=== PATIENT | female | born 1955 | race Caucasian/White ===

== ENCOUNTER 2021-04-28 13:34 | Outpatient (REF) | payer OTHER, SELFPAY ==
[2021-04-28 14:54] LABS: MANUAL DIFF FLAG NO
[2021-04-28 15:37] LABS: Basophils Percent Auto 0.6 % (0-2); Eosinophils Absolute Auto 0.2 X10*3/uL (0.0-0.4); Eosinophils Percent Auto 3.7 % (0-4); Hematocrit 42.6 % (37-47); Hemoglobin 14.1 g/dl (12.0-16.0); Imm Gran Abs Auto 0.02 X10*3/uL (0.00-0.03); Imm Gran Pct Auto 0.3 % (0.0-0.4); Lymphocytes Absolute Auto 2.2 X10*3/uL (1.2-4.9); Lymphocytes Percent Auto 34.1 % (20-40); Mean Corpuscular HGB Conc 33.1 g/dl (31.0-35.0); Mean Corpuscular Hemoglobin 31.3 pg (27.0-33.0); Mean Corpuscular Volume 94.5 fL (80-98); Mean Platelet Volume 9.5 fL (9.4-12.3); Monocytes Absolute Auto 0.6 X10*3/uL (0.1-1.2); Monocytes Percent Auto 8.4 % (2-11); Neutrophils Absolute Auto 3.4 X10*3/uL (2.0-8.3); Neutrophils Percent Auto 52.9 % (45-73); Platelet Count 327 X10*3/uL (160-400); Red Blood Count 4.51 X10*6/uL (4.20-5.50); Red Cell Distribution Width 12.6 % (11.0-16.0); White Blood Count 6.5 X10*3/uL (4.8-10.8)
[2021-04-28 16:21] LABS: Erythrocyte Sedimentation Rate 12 MM/HR (0-20)
[2021-04-29 20:51] LABS: Immunoglobulin E 13 kU/L (<OR=114)
[2021-04-30 08:27] LABS: Myeloperoxidase Antibody <1.0 AI; Proteinase 3 PR3 Antibodies <1.0 AI
[2021-05-01 01:56] LABS: Cyclic Citrullinated Peptide <16 UNITS
[2021-05-03 13:17] LABS: Asperg fumigatus Precip Abs NEGATIVE (NEGATIVE); Micropoly faeni Abs NEGATIVE (NEGATIVE); Pigeon serum Abs NEGATIVE (NEGATIVE); Saccharo pora viridis Abs NEGATIVE (NEGATIVE); Thermo candidus Abs NEGATIVE (NEGATIVE); Thermoa vulgaris #1 NEGATIVE (NEGATIVE)
[2021-05-06 14:06] LABS: Anti Nuclear Antibody Screen NEGATIVE (NEGATIVE)
== END 2021-04-28 13:35 | disposition home or self-care (01) ==
LOC: HO.LAB 13:34
PROVIDERS: PCP Internal Medicine; Visit Provider Hospitalist
DX: R91.8 Other nonspecific abnormal finding of lung field (principal); J67.9 Hypersensitivity pneumonitis due to unspecified organic dust
CPT/HCPCS: 36415; 82785; 85025; 85652; 86021; 86038; 86039; 86200; 86331; 86606; 86609

== ENCOUNTER 2021-10-09 15:45 | Outpatient (REF) | payer OTHER, SELFPAY ==
--- NOTE | 2021-10-09 17:09 | PFT_ITS ---
INDICATION: Dyspnea. SPIROMETRY: FEV1 to FVC of 89% with an FEV1 of 2.53 L, which is 96% predicted and an FVC of 2.85 L, which is 82% predicted. No significant response to bronchodilators noted. Maximum voluntary ventilation 108% predicted. LUNG VOLUMES: Total lung capacity 94% predicted. DIFFUSION CAPACITY: DLCO 71% predicted. COMPARISONS: PFTs from 2020. INTERPRETATION: No obstructive nor restrictive ventilatory defects identified. No significant response to bronchodilators noted. Normal maximum voluntary ventilation. Normal lung volumes except for an isolated mild diffusion impairment. When compared to 2020, there was a trend decrease in the FVC, a trend decrease in the FEV1. No significant change in the total lung capacity, and trend decrease in the diffusion capacity. Clinical correlation warranted. MD TAE Werner/MODKathleen / [id number]
== END 2021-10-09 15:46 | disposition home or self-care (01) ==
LOC: HO.RESP 15:45
PROVIDERS: PCP Internal Medicine; Visit Provider Hospitalist
DX: R91.8 Other nonspecific abnormal finding of lung field (principal); R06.00 Dyspnea, unspecified
CPT/HCPCS: 94060; 94727; 94729

== ENCOUNTER → 2021-11-03 11:23 | Outpatient (BNVA) | payer OTHER, SELFPAY | PROVIDERS: PCP Internal Medicine; Visit Provider Hospitalist | DX: R91.8 Other nonspecific abnormal finding of lung field (principal) ==

== ENCOUNTER 2022-05-06 16:19 | Outpatient (REF) | payer OTHER, SELFPAY ==
--- NOTE | ~2022-05-06 | CT_ITS ---
EXAMINATION: CT CHEST WITHOUT CONTRAST CLINICAL INFORMATION: Follow-up pulmonary nodules COMPARISON: Previous chest CT most recent April 2021 TECHNIQUE: Multidetector volumetric CT imaging of the chest was done. Axial MIP volume rendering provided. Sagittal and coronal reformatted images were obtained. This CT examination was performed using dose optimization techniques as appropriate, variously including the following: *Automated exposure control *Adjustment of mA and/or kV according to patient size (this includes techniques or standardized protocols for targeted exams where dose is matched to indication/reason for exam; i.e. extremities or head) *Use of iterative reconstruction technique DLP: 289 mGy-cm FINDINGS: LUNGS: There is interval decrease in size and number of pulmonary nodules. There is a solid 5 mm right middle lobe nodule axial image 268 series 5. This is slightly decreased in size from 6 mm April 2021 exam. Previously identified subsolid pulmonary nodules greatest in the right upper and right middle lobes appear decreased in size and density or are no longer seen. No new pulmonary nodule. MEDIASTINUM: Enlarged thyroid gland with multiple nodules including calcified partially nodules. Largest nodule is in the left lobe and measures 2 x 5 cm in transverse and longitudinal dimension. Ultrasound follow-up recommended. Small stable mediastinal lymph nodes. No enlarged mediastinal lymph nodes. Evaluation for hilar adenopathy is limited without contrast. There is question of left hilar adenopathy similar to previous exam. Normal heart size. No pericardial effusion. Normal caliber thoracic aorta. CORONARY ARTERY CALCIFICATION: Mild to moderate PLEURA: There is no pleural effusion. No pleural mass or thickening. AXILLA: No lymphadenopathy. UPPER ABDOMEN: Unremarkable. OSSEOUS STRUCTURES: Degenerative changes of the thoracic spine. Postsurgical changes to the cervical spine. CT/CT chest wo IV con IMPRESSION: Slight interval decrease in size in the solid right middle lobe nodule. Interval decrease in size and number of subsolid pulmonary nodules. Stable mediastinal and question left hilar lymphadenopathy. Coronary artery calcification. Enlarged thyroid gland with multiple nodules. Follow-up thyroid ultrasound recommended. Fleischner guidelines were followed.
== END 2022-05-06 16:20 | disposition home or self-care (01) ==
LOC: HO.CT 16:19
PROVIDERS: PCP Internal Medicine; Visit Provider Hospitalist
DX: R91.8 Other nonspecific abnormal finding of lung field (principal); J67.9 Hypersensitivity pneumonitis due to unspecified organic dust
CPT/HCPCS: 71250

== ENCOUNTER → 2022-06-23 15:41 | Outpatient (BNVA) | payer OTHER, SELFPAY | PROVIDERS: PCP Internal Medicine; Visit Provider Hospitalist | DX: R91.8 Other nonspecific abnormal finding of lung field (principal) ==

== ENCOUNTER 2023-07-02 14:49 | Outpatient (AMB) | payer OTHER, SELFPAY ==
[2023-07-02 14:52] VITALS: PULSE 65; O2SAT 98; BMI 37.9
--- NOTE | 2023-07-02 14:52 | MHC.OFFVIS ---
Intake Vital Signs 07/02/23 14:52 Height 5 ft 6 in Weight 235 lb BMI 37.9 Pulse 65 Pulse Source Pulse Oximeter Pulse Oximetry (%) 98 Oxygen Delivery Method Room Air Intake Visit Reasons: CT Chest Follow Up First Aid Trainer Required: No Allergies penicillin G Allergy (Severe, Verified 07/02/23 14:53) swelling Penicillins [PENICILLINS] Allergy (Severe, Unverified 07/02/23 14:53) SEVERE REACTION DR TOLD TO NEVER TAKE. BULLIES TO LUNGS. hydrocodone [From VICODIN] Allergy (Intermediate, Unverified 07/02/23 14:53) NAUSEA Sulfa (Sulfonamide Antibiotics) [SULFA (SULFONAMIDE ANTIBIOTICS)] Allergy (Intermediate, Unverified 07/02/23 14:53) NAUSEA meloxicam Adverse Reaction (Severe, Verified 07/02/23 14:53) Palpitations diclofenac Adverse Reaction (Intermediate, Verified 07/02/23 14:53) Palpitations sulfa Allergy (Severe, Uncoded 07/02/23 14:53) nausea vicodin Allergy (Severe, Uncoded 07/02/23 14:53) Nausea HPI HPI Comments History of Present Illness Details The patient is a 67-year-old woman with a known history of asthma in addition to pulmonary nodules. Her asthma has been stable on the Flovent. She was supposed to have pulmonary function studies and we have to reschedule those. In the meantime for the last few days she developed some sinus congestion and sinus headaches. Also felt warm. We did check her temperature to be 98.7. Her symptoms usually worsened when she bends down her head. Moderate severity. She hasn't taking any medications for it. In regards to her pulmonary nodules the last CT scan of the chest that she had was about a year ago. She did bring a copy of her CT scans that we personally reviewed here in the office. It appears patient has multiple pulmonary nodules primarily ground-glass the nodular densities which very in size. The largest nodule is an 8 mm nodule the right lung. It is slightly irregular in shape. Appears to be stable when compared to her last CT scan back in 2019. At this point the patient needs a repeat CT scan of the chest. ?03/12/2020 the patient is here for pulmonary follow-up visit. She is doing well from a respiratory status. He denies any shortness of breath or cough. She continues use the Flovent in the morning and risks her mild afterwards. She did have a repeat CT scan of the chest done at [facility] which was then compared to the CT scan from [place]. She did have new findings of additional small ground-glass densities primarily in the upper lung zones right more than left. Hard to know if this is completed new or if it is the fact that she had the imaging done elsewhere. We talked about the differential diagnosis including atypical edematous hyperplasia, hypersensitivity reactions and other inflammatory conditions. Her largest nodule in the right lower lobe measuring 7 mm in size has not changed. Will plan to do additional blood work at this time. The findings are not significant enough to warrant invasive or semi-invasive diagnostic intervention at this time. Will plan to really look at the nodules in 6 months and see if there are any significant changes at that time. 04/28/2021 the patient is here for a pulmonary follow-up visit. Overall she continues to do well from a respiratory status. She does complaint of dyspnea on exertion if she is going up a flight of stairs. But otherwise no real limitations. The patient has been using the Flovent daily. We did review her recent CT scan of the chest that was done back in WednesdayApril 24. Unfortunately has not been officially read yet. However I personally reviewed her CT scan of the chest that she had several days ago and compared to her CT scan that she had a little more than year ago. There appears to be interval worsening of the ground-glass the nodular densities primarily in the right upper lung area. Also involving her right middle lobe area. Appears to be in a bronchovascular distribution. Most of the nodules are indeed hazy ground-glass. there is also a 6-7 mm solid nodular density has not changed. 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 11/03/2021 the patient is here for a pulmonary follow-up visit. Overall the patient has been doing well. Denies any significant shortness of breath. She has been working on weight loss. She is trying to exercise more regularly. She continues on the Flovent inhaler which she is tolerating well without any adverse effects. She did have a CT scan of the abdomen done relatively recent that we personally reviewed. No significant parenchymal lung issues or nodules noted. Her last CT scan of the chest was sometime in April 2021. she had multiple pulmonary nodules some that were solids and some subsolid. Her workup for connective tissue conditions in hypersensitivity reactions were also all negative. Therefore the etiology of the pulmonary nodules still unclear. However, while the nodules do not increase then diagnostic testing 1 have a warranted. The patient understands the best way to biopsy 1 of these nodules to be with wedge biopsy Center small CT-guided biopsy may be difficult to Perform with a high yield. Therefore hold off any invasive or semi-invasive diagnostic interventions at this time. Will follow-up in 6-[address] scan. The patient will continue with the Flovent until then. 06/23/2022 the patient is here for a pulmonary follow-up visit. The patient has been doing better at this time. She recently returned from a cruise to [place] and unfortunately she got sick with COVID-19. Her significant other also was sick with COVID-19. She was able to take packs Flovent but several days after the fact. Therefore she felt very sick for several days and now she is back to her baseline. She is going on a cruise in the coming weeks. She will take COVID-19 test. She continues on the Flovent. She did undergo a repeat CT scan that was personally by me. In addition to that we did review and compare to her previous CT scan a year ago. It appears that some of the nodular densities have subsided and some of the ground-glass nodular densities also of subsided some. Although this still present in some areas. Overall reassuring. The suspicion is that this is likely hyper sensitivity process. Although, the only way knowing for sure is to undergo a biopsy. The patient clinically is doing well and the nodular densities are decreasing in size so I do not see the need to pursue any invasive intervention at this time. 07/02/2023 the patient is here for sick visit. Apparently the patient developed COVID again beginning of the month. Just came back from a cruise. The patient started feeling better but then she started getting worse again the last week or so. She went to an urgent care. He was given supportive care. Ultimately then symptoms continued to worsened and therefore she went back to her primary care and she was given a course of doxycycline. I was time the patient did have a CT scan of the chest that was scheduled to follow-up with the pulmonary nodules and indeed she did have a small pneumonia in the right middle lobe area. She also has a pulmonary nodules. Also has some areas of ground-glass opacities. A lot of the findings have to do with her recent likely viral illness and also now the development of postviral bacterial pneumonia. The patient has been responding well to doxycycline. Although will go ahead and complete a 14 day course to treat for the possibility of staph aureus. her pulmonary nodules are stable which is reassuring. Will plan to repeat a chest x-ray when she returns in 6 months. If the x-rays no better or of any abnormal findings or symptoms will repeat the CT scan at an earlier time. [facility] Medical History (Updated 07/05/23 @ 21:00 by Calixto Billingsley MD) Pneumonia Hypersensitivity pneumonitis Pulmonary nodules Social History (Updated 04/28/21 @ 13:53 by Jessica Cotto Marky) Patient Tobacco Use Status: Never used Tobacco Review of Systems Const Denies night sweats ENT Denies change in voice, Denies lip swelling, Denies mouth pain, Reports nasal congestion, Reports nasal discharge and Denies tongue swelling Card Denies chest pain and Reports dyspnea on exertion Resp Reports change in phlegm color, Reports chest congestion, Reports cough, Reports dyspnea on exertion and Reports wheezing GI Denies abdominal pain Musc Denies no additional complaints Neuro Denies Neuro-related abnormal movements Psych Denies no additional complaints Krzysztof/Lymph Denies easy bleeding and Denies lymphadenopathy Aller/Immun Denies lip swelling, Denies tongue swelling and Reports wheezing Physical Exam Vital Signs: Last Vital Signs Pulse 65 07/02/23 14:52 Pulse Ox 98 07/02/23 14:52 Oxygen Delivery Method Room Air 07/02/23 14:52 BMI result Body Mass Index 37.9 Const General: alert Neck Neck: Yes normal visual inspection, Yes full ROM and Yes no lymphadenopathy Chest Chest palpation & inspection: normal inspection of the chest Resp Effort & Inspection: normal respiratory effort Auscultation: no rales, no rhonchi, no wheezes and diminished lung sounds Cardio Rate: regular rate Rhythm: regular rhythm Heart sounds: S1 normal heart sound present and S2 normal heart sound present GI Palpation (GI): Soft to palpation and nontender Auscultation: normal bowel sounds Skin General skin exam: rashes and/or lesions noted Assessment & Plan Assessment & Plan (1) Pulmonary nodules: Code(s): R91.8 - Other nonspecific abnormal finding of lung field (2) Hypersensitivity pneumonitis: Code(s): J67.9 - Hypersensitivity pneumonitis due to unspecified organic dust (3) Pneumonia: Code(s): J18.9 - Pneumonia, unspecified organism Qualifiers: Pneumonia type: due to unspecified organism Laterality: right Lung location: middle lobe of lung Qualified Code(s): J18.9 - Pneumonia, unspecified organism (4) Asthma: Code(s): J45.909 - Unspecified asthma, uncomplicated Qualifiers: Asthma severity: mild Asthma persistence: intermittent Asthma complication type: with acute exacerbation Qualified Code(s): J45.21 - Mild intermittent asthma with (acute) exacerbation Plan Recommendations: Continue Flovent to twice a day start ANNELISE as needed Doxycycline to complete 14 days sputum cx if no better antihistamines as needed CXR in [address] chest in 1 yr- pt prefers [facility] 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 also 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 outside in the garden F/U in 4-6 months or sooner if no better Orders: Orders Sputum Cult + Gram stain 07/02/23 J18.9 - Pneumonia, unspecified organism XR chest 2V 07/02/23 J18.9 - Pneumonia, unspecified organism Medications: New doxycycline monohydrate 100 mg PO BID 10 days 20 tabs 0RF albuterol sulfate 90 mcg/actuation 2 inhalations inhalation Q6H 30 days PRN 18 grams 12RF shortness of breath or wheezing J44.9 - Chronic obstructive pulmonary disease, unspecified Coding Level of Care Code Est Pt Level 4 (74873) Diagnoses Pulmonary nodules R91.8 Hypersensitivity pneumonitis J67.9 Pneumonia of right middle lobe due to infectious organism J18.9 Pneumonia type: due to unspecified organism Laterality: right Lung location: middle lobe of lung Mild intermittent asthma with acute exacerbation J45.21 Asthma severity: mild Asthma persistence: intermittent Asthma complication type: with acute exacerbation Time Spent (min) 18
== END 2023-07-02 15:28 | disposition home or self-care (01) ==
PROVIDERS: PCP Internal Medicine; Visit Provider Hospitalist
DX: R91.8 Other nonspecific abnormal finding of lung field (principal); J18.9 Pneumonia, unspecified organism; J45.21 Mild intermittent asthma with (acute) exacerbation
CPT/HCPCS: 99214

== ENCOUNTER → 2023-07-02 14:49 | Outpatient (BNVA) | payer OTHER, SELFPAY | PROVIDERS: PCP Internal Medicine; Visit Provider Hospitalist ==

== ENCOUNTER 2023-08-24 15:20 | Outpatient (AMB) | payer OTHER, SELFPAY ==
[2023-08-24 15:36] VITALS: PULSE 64; O2SAT 97; BMI 38.7
--- NOTE | 2023-08-24 15:36 | A.OFFVIS_ITS ---
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 BULLIES TO LUNGS. hydrocodone [From VICODIN] Allergy (Intermediate, Unverified 08/24/23 15:38) NAUSEA Sulfa (Sulfonamide Antibiotics) [SULFA (SULFONAMIDE ANTIBIOTICS)] Allergy (Intermediate, Unverified 08/24/23 15:38) NAUSEA meloxicam Adverse Reaction (Severe, Verified 08/24/23 15:38) Palpitations diclofenac Adverse Reaction (Intermediate, Verified 08/24/23 15:38) Palpitations sulfa Allergy (Severe, Uncoded 08/24/23 15:38) nausea vicodin Allergy (Severe, Uncoded 08/24/23 15:38) Nausea HPI HPI Comments History of Present Illness Details The patient is a 67-year-old woman with a known history of asthma in addition to pulmonary nodules. Her asthma has been stable on the Flovent. She was supposed to have pulmonary function studies and we have to reschedule those. In the meantime for the last few days she developed some sinus congestion and sinus headaches. Also felt warm. We did check her temperature to be 98.7. Her symptoms usually worsened when she bends down her head. Moderate severity. She hasn't taking any medications for it. In regards to her pulmonary nodules the last CT scan of the chest that she had was about a year ago. She did bring a copy of her CT scans that we personally reviewed here in the office. It appears patient has multiple pulmonary nodules primarily ground-glass the nodular densities which very in size. The largest nodule is an 8 mm nodule the right lung. It is slightly irregular in shape. Appears to be stable when compared to her last CT scan back in 2019. At this point the patient needs a repeat CT scan of the chest. ?03/12/2020 the patient is here for pulmonary follow-up visit. She is doing well from a respiratory status. He denies any shortness of breath or cough. She continues use the Flovent in the morning and risks her mild afterwards. She did have a repeat CT scan of the chest done at [facility] which was then compared to the CT scan from [place]. She did have new findings of additional small ground-glass densities primarily in the upper lung zones right more than left. Hard to know if this is completed new or if it is the fact that she had the imaging done elsewhere. We talked about the differential diagnosis including atypical edematous hyperplasia, hypersensitivity reactions and other inflammatory conditions. Her largest nodule in the right lower lobe measuring 7 mm in size has not changed. Will plan to do additional blood work at this time. The findings are not significant enough to warrant invasive or semi-invasive diagnostic intervention at this time. Will plan to really look at the nodules in 6 months and see if there are any significant changes at that time. 04/28/2021 the patient is here for a pulmonary follow-up visit. Overall she continues to do well from a respiratory status. She does complaint of dyspnea on exertion if she is going up a flight of stairs. But otherwise no real limitations. The patient has been using the Flovent daily. We did review her recent CT scan of the chest that was done back in WednesdayApril 24. Unfortunately has not been officially read yet. However I personally reviewed her CT scan of the chest that she had several days ago and compared to her CT s can that she had a little more than year ago. There appears to be interval worsening of the ground-glass the nodular densities primarily in the right upper lung area. Also involving her right middle lobe area. Appears to be in a bronchovascular distribution. Most of the nodules are indeed hazy ground-glass. there is also a 6-7 mm solid nodular density has not changed. 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 11/03/2021 the patient is here for a pulmonary follow-up visit. Overall the patient has been doing well. Denies any significant shortness of breath. She has been working on weight loss. She is trying to exercise more regularly. She continues on the Flovent inhaler which she is tolerating well without any adverse effects. She did have a CT scan of the abdomen done relatively recent that we personally reviewed. No significant parenchymal lung issues or nodules noted. Her last CT scan of the chest was sometime in April 2021. she had multiple pulmonary nodules some that were solids and some subsolid. Her workup for connective tissue conditions in hypersensitivity reactions were also all negative. Therefore the etiology of the pulmonary nodules still unclear. However, while the nodules do not increase then diagnostic testing 1 have a warranted. The patient understands the best way to biopsy 1 of these nodules to be with wedge biopsy Center small CT-guided biopsy may be difficult to Perform with a high yield. Therefore hold off any invasive or semi-invasive diagnostic interventions at this time. Will follow-up in 6-[address] scan. The patient will continue with the Flovent until then. 06/23/2022 the patient is here for a pulmonary follow-up visit. The patient has been doing better at this time. She recently returned from a cruise to [place] and unfortunately she got sick with COVID-19. Her significant other also was sick with COVID-19. She was able to take packs Flovent but several days after the fact. Therefore she felt very sick for several days and now she is back to her baseline. She is going on a cruise in the coming weeks. She will take COVID-19 test. She continues on the Flovent. She did undergo a repeat CT scan that was personally by me. In addition to that we did review and compare to her previous CT scan a year ago. It appears that some of the nodular densities have subsided and some of the ground-glass nodular densities also of subsided some. Although this still present in some areas. Overall reassuring. The suspicion is that this is likely hyper sensitivity process. Although, the only way knowing for sure is to undergo a biopsy. The patient clinically is doing well and the nodular densities are decreasing in size so I do not see the need to pursue any invasive intervention at this time. 07/02/2023 the patient is here for sick visit. Apparently the patient developed COVID again beginning of the month. Just came back from a cruise. The patient started feeling better but then she started getting worse again the last week or so. She went to an urgent care. He was given supportive care. Ultimately then symptoms continued to worsened and therefore she went back to her primary care and she was given a course of doxycycline. I was time the patient did have a CT scan of the chest that was scheduled to follow-up with the pulmonary nodules and indeed she did have a small pneumonia in the right middle lobe area. She also has a pulmonary nodules. Also has some areas of ground- glass opacities. A lot of the findings have to do with her recent likely viral illness and also now the development of postviral bacterial pneumonia. The patient has been responding well to doxycycline. Although will go ahead and complete a 14 day course to treat for the possibility of staph aureus. her pulmonary nodules are stable which is reassuring. Will plan to repeat a chest x-ray when she returns in 6 months. If the x-rays no better or of any abnormal findings or symptoms will repeat the CT scan at an earlier time. 08/24/2023 the patient is here for a pulmonary follow-up visit. She completed the antibiotics at this time. Still having some chest tightness and cough. Moderate severity. She does respond to respiratory inhalers. does have some shortness of breath with activity mild in severity. She is monitoring closely her symptoms. We did talk about different ways to boost the immune system. She knows is going to take some time specially after viral syndrome. The patient did have a CT scan done at [facility]. It demonstrated her underlying pulmonary nodules but also now an area of airspace disease consolidation right middle lobe area. In view of her abnormal findings will go ahead and repeat her CAT scan low sooner to make sure that we see resolution of that new process. If the areas still present then additional diagnostic interventions will be necessary including bronchoscopy. [facility] Medical History (Updated 07/05/23 @ 21:00 by Calixto Billingsley MD) Pneumonia Hypersensitivity pneumonitis Pulmonary nodules Social History (Updated 04/28/21 @ 13:53 by VERO Young) Patient Tobacco Use Status: Never used Tobacco Review of Systems Const Denies night sweats ENT Denies change in voice, Denies lip swelling, Denies mouth pain, Reports nasal congestion, Reports nasal discharge and Denies tongue swelling Card Denies chest pain and Reports dyspnea on exertion Resp Denies change in phlegm color, Denies chest congestion, Reports cough, Reports dyspnea on exertion and Reports wheezing GI Denies abdominal pain Musc Denies no additional complaints Neuro Denies Neuro-related abnormal movements Psych Denies no additional complaints Krzysztof/Lymph Denies easy bleeding and Denies lymphadenopathy Aller/Immun Denies lip swelling, Denies tongue swelling and Reports wheezing Physical Exam Vital Signs: Last Vital Signs Pulse 64 08/24/23 15:36 Pulse Ox 97 08/24/23 15:36 Oxygen Delivery Method Room Air 08/24/23 15:36 BMI result Body Mass Index 38.7 Const General: alert Neck Neck: Yes normal visual inspection, Yes full ROM and Yes no lymphadenopathy Chest Chest palpation & inspection: normal inspection of the chest Resp Effort & Inspection: normal respiratory effort Auscultation: no rales, no rhonchi, no wheezes and diminished lung sounds Cardio Rate: regular rate Rhythm: regular rhythm Heart sounds: S1 normal heart sound present and S2 normal heart sound present GI Palpation (GI): Soft to palpation and nontender Auscultation: normal bowel sounds Skin General skin exam: rashes and/or lesions noted Assessment & Plan Assessment & Plan (1) Pulmonary nodules: Code(s): R91.8 - Other nonspecific abnormal finding of lung field (2) Hypersensitivity pneumonitis: Code(s): J67.9 - Hypersensitivity pneumonitis due to unspecified organic dust (3) Pneumonia: Code(s): J18.9 - Pneumonia, unspecified organism Qualifiers: Laterality: right Lung location: middle lobe of lung Pneumonia type: due to unspecified organism Qualified Code(s): J18.9 - Pneumonia, unspecified organism (4) Asthma: Code(s): J45.909 - Unspecified asthma, uncomplicated Qualifiers: Asthma complication type: with acute exacerbation Asthma persistence: intermittent Asthma severity: mild Qualified Code(s): J45.21 - Mild intermittent asthma with (acute) exacerbation Plan Recommendations: Continue Flovent to twice a day ANNELISE as needed antihistamines as needed 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 F/U in 4-6 months or sooner if no better Orders: Orders CT chest wo IV con Today J18.9 - Pneumonia, unspecified organism, R91.8 - Other nonspecific abnormal finding of lung field Coding Level of Care Code Est Pt Level 4 (74463) Diagnoses Pulmonary nodules R91.8 Hypersensitivity pneumonitis J67.9 Pneumonia of right middle lobe due to infectious organism J18.9 Laterality: right Lung location: middle lobe of lung Pneumonia type: due to unspecified organism Mild intermittent asthma with acute exacerbation J45.21 Asthma complication type: with acute exacerbation Asthma persistence: intermittent Asthma severity: mild Time Spent (min) 17
== END 2023-08-24 16:08 | disposition home or self-care (01) ==
PROVIDERS: PCP Internal Medicine; Visit Provider Hospitalist
DX: R91.8 Other nonspecific abnormal finding of lung field (principal); J67.9 Hypersensitivity pneumonitis due to unspecified organic dust; J18.9 Pneumonia, unspecified organism; J45.21 Mild intermittent asthma with (acute) exacerbation
CPT/HCPCS: 99214

== ENCOUNTER → 2023-08-24 15:20 | Outpatient (BNVA) | payer OTHER, SELFPAY | PROVIDERS: PCP Internal Medicine; Visit Provider Hospitalist | DX: J44.9 Chronic obstructive pulmonary disease, unspecified (principal); J18.9 Pneumonia, unspecified organism ==

== ENCOUNTER 2024-10-24 13:47 | Outpatient (AMB) | payer OTHER, SELFPAY ==
[2024-10-24 13:57] VITALS: BP 116/74; PULSE 83; O2SAT 98; BMI 37.9
--- NOTE | 2024-10-24 13:57 | A.OFFVIS_ITS ---
Vital Signs 10/24/24 13:57 Height 5 ft 6 in Weight 234 lb 12.677 oz BMI 37.9 BP 116/74 Blood Pressure Location Rt brachial Position Sitting Pulse 83 Pulse Source Pulse Oximeter Pulse Oximetry (%) 98 Oxygen Delivery Method Room Air Intake Visit Reasons: Pulmonary Nodules Allergies penicillin G Allergy (Severe, Verified 08/24/23 15:38) swelling Penicillins [PENICILLINS] Allergy (Severe, Unverified 08/24/23 15:38) SEVERE REACTION DR TOLD TO NEVER TAKE. BULLIES TO LUNGS. hydrocodone [From VICODIN] Allergy (Intermediate, Unverified 08/24/23 15:38) NAUSEA Sulfa (Sulfonamide Antibiotics) [SULFA (SULFONAMIDE ANTIBIOTICS)] Allergy (Intermediate, Unverified 08/24/23 15:38) NAUSEA meloxicam Adverse Reaction (Severe, Verified 08/24/23 15:38) Palpitations sulfa Allergy (Severe, Uncoded 08/24/23 15:38) nausea vicodin Allergy (Severe, Uncoded 08/24/23 15:38) Nausea HPI Comments Details: The patient is a 69-year-old woman with a known history of asthma in addition to pulmonary nodules. Her asthma has been stable on the Flovent. She was supposed to have pulmonary function studies and we have to reschedule those. In the meantime for the last few days she developed some sinus congestion and sinus headaches. Also felt warm. We did check her temperature to be 98.7. Her symptoms usually worsened when she bends down her head. Moderate severity. She hasn't taking any medications for it. In regards to her pulmonary nodules the last CT scan of the chest that she had was about a year ago. She did bring a copy of her CT scans that we personally reviewed here in the office. It appears patient has multiple pulmonary nodules primarily ground-glass the nodular densities which very in size. The largest nodule is an 8 mm nodule the right lung. It is slightly irregular in shape. Appears to be stable when compared to her last CT scan back in 2019. At this point the patient needs a repeat CT scan of the chest. ?03/12/2020 the patient is here for pulmonary follow-up visit. She is doing well from a respiratory status. He denies any shortness of breath or cough. She continues use the Flovent in the morning and risks her mild afterwards. She did have a repeat CT scan of the chest done at [facility] which was then compared to the CT scan from [place]. She did have new findings of additional small ground-glass densities primarily in the upper lung zones right more than left. Hard to know if this is completed new or if it is the fact that she had the imaging done elsewhere. We talked about the differential diagnosis including atypical edematous hyperplasia, hypersensitivity reactions and other inflammatory conditions. Her largest nodule in the right lower lobe measuring 7 mm in size has not changed. Will plan to do additional blood work at this time. The findings are not significant enough to warrant invasive or semi-invasive diagnostic intervention at this time. Will plan to really look at the nodules in 6 months and see if there are any significant changes at that time. 04/28/2021 the patient is here for a pulmonary follow-up visit. Overall she continues to do well from a respiratory status. She does complaint of dyspnea on exertion if she is going up a flight of stairs. But otherwise no real limitations. The patient has been using the Flovent daily. We did review her recent CT scan of the chest that was done back in WednesdayApril 24. Unfortunately has not been officially read yet. However I personally reviewed her CT scan of the chest that she had several days ago and compared to her CT scan that she had a little more than year ago. There appears to be interval worsening of the ground-glass the nodular densities primarily in the right upper lung area. Also involving her right middle lobe area. Appears to be in a bronchovascular distribution. Most of the nodules are indeed hazy ground-glass. there is also a 6-7 mm solid nodular density has not changed. 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 11/03/2021 the patient is here for a pulmonary follow-up visit. Overall the patient has been doing well. Denies any significant shortness of breath. She has been working on weight loss. She is trying to exercise more regularly. She continues on the Flovent inhaler which she is tolerating well without any adverse effects. She did have a CT scan of the abdomen done relatively recent that we personally reviewed. No significant parenchymal lung issues or nodules noted. Her last CT scan of the chest was sometime in April 2021. she had multiple pulmonary nodules some that were solids and some subsolid. Her workup for connective tissue conditions in hypersensitivity reactions were also all negative. Therefore the etiology of the pulmonary nodules still unclear. However, while the nodules do not increase then diagnostic testing 1 have a warranted. The patient understands the best way to biopsy 1 of these nodules to be with wedge biopsy Center small CT-guided biopsy may be difficult to Perform with a high yield. Therefore hold off any invasive or semi-invasive diagnostic interventions at this time. Will follow-up in 6-[address] scan. The patient will continue with the Flovent until then. 06/23/2022 the patient is here for a pulmonary follow-up visit. The patient has been doing better at this time. She recently returned from a cruise to [place] and unfortunately she got sick with COVID-19. Her significant other also was sick with COVID-19. She was able to take packs Flovent but several days after the fact. Therefore she felt very sick for several days and now she is back to her baseline. She is going on a cruise in the coming weeks. She will take COVID-19 test. She continues on the Flovent. She did undergo a repeat CT scan that was personally by me. In addition to that we did review and compare to her previous CT scan a year ago. It appears that some of the nodular densities have subsided and some of the ground-glass nodular densities also of subsided some. Although this still present in some areas. Overall reassuring. The suspicion is that this is likely hyper sensitivity process. Although, the only way knowing for sure is to undergo a biopsy. The patient clinically is doing well and the nodular densities are decreasing in size so I do not see the need to pursue any invasive intervention at this time. 07/02/2023 the patient is here for sick visit. Apparently the patient developed COVID again beginning of the month. Just came back from a cruise. The patient started feeling better but then she started getting worse again the last week or so. She went to an urgent care. He was given supportive care. Ultimately then symptoms continued to worsened and therefore she went back to her primary care and she was given a course of doxycycline. I was time the patient did have a CT scan of the chest that was scheduled to follow-up with the pulmonary nodules and indeed she did have a small pneumonia in the right middle lobe area. She also has a pulmonary nodules. Also has some areas of ground- glass opacities. A lot of the findings have to do with her recent likely viral illness and also now the development of postviral bacterial pneumonia. The patient has been responding well to doxycycline. Although will go ahead and complete a 14 day course to treat for the possibility of staph aureus. her pulmonary nodules are stable which is reassuring. Will plan to repeat a chest x-ray when she returns in 6 months. If the x-rays no better or of any abnormal findings or symptoms will repeat the CT scan at an earlier time. 08/24/2023 the patient is here for a pulmonary follow-up visit. She completed the antibiotics at this time. Still having some chest tightness and cough. Moderate severity. She does respond to respiratory inhalers. does have some shortness of breath with activity mild in severity. She is monitoring closely her symptoms. We did talk about different ways to boost the immune system. She knows is going to take some time specially after viral syndrome. The patient did have a CT scan done at [facility]. It demonstrated her underlying pulmonary nodules but also now an area of airspace disease consolidation right middle lobe area. In view of her abnormal findings will go ahead and repeat her CAT scan low sooner to make sure that we see resolution of that new process. If the areas still present then additional diagnostic interventions will be necessary including bronchoscopy. 10/24/2024 the patient is here for pulmonary follow-up visit. Overall she is feeling better. Denies any underlying respiratory issues. Has not had to use her inhalers regularly. She recently had a hip surgery done. Now she is recovering. But she feels already like the pain in the hip is better. During the last trip she had back in the fall she went on a cruise to [email or web address] and when she was there she had to rent a scooter because she could barely walk. So she is followed putting some weight on the hip and she is going to work on weight loss management. In the meantime she did undergo a CT scan of the chest which I personally reviewed demonstrating interval resolution of the consolidation and pulmonary nodules are stable. Will plan to repeat a CAT scan again 12-18 months. If she has any issues prior to that she will call for an earlier assessment. [facility] Medical History (Updated 10/24/24 @ 20:47 by Calixto Billingsley MD) Chronic rhinitis Pneumonia Hypersensitivity pneumonitis Pulmonary nodules Social History Patient Tobacco Use Status: Never used Tobacco Review of Systems Const Denies night sweats ENT Denies change in voice, Reports otalgia, Denies lip swelling, Denies mouth pain, Reports nasal congestion, Reports nasal discharge and Denies tongue swelling Card Denies chest pain and Reports dyspnea on exertion Resp Denies change in phlegm color, Denies chest congestion, Reports cough, Reports dyspnea on exertion and Reports wheezing GI Denies abdominal pain Musc Denies no additional complaints Neuro Denies Neuro-related abnormal movements Psych Denies no additional complaints Krzysztof/Lymph Denies easy bleeding and Denies lymphadenopathy Aller/Immun Denies lip swelling, Denies tongue swelling and Reports wheezing Physical Exam Vital Signs: Last Vital Signs Pulse 83 10/24/24 13:57 BP 116/74 10/24/24 13:57 Pulse Ox 98 10/24/24 13:57 Oxygen Delivery Method Room Air 10/24/24 13:57 BMI result Body Mass Index 37.9 Const General: alert Neck Neck: Yes normal visual inspection, Yes full ROM and Yes no lymphadenopathy Chest Chest palpation & inspection: normal inspection of the chest Resp Effort & Inspection: normal respiratory effort Auscultation: no rales, no rhonchi, no wheezes and diminished lung sounds Cardio Rate: regular rate Rhythm: regular rhythm Heart sounds: S1 normal heart sound present and S2 normal heart sound present GI Palpation (GI): Soft to palpation and nontender Auscultation: normal bowel sounds Skin General skin exam: rashes and/or lesions noted Assessment & Plan Assessment & Plan (1) Pulmonary nodules: Code(s): R91.8 - Other nonspecific abnormal finding of lung field Category: Medical (2) Hypersensitivity pneumonitis: Code(s): J67.9 - Hypersensitivity pneumonitis due to unspecified organic dust Category: Medical (3) Asthma: Code(s): J45.909 - Unspecified asthma, uncomplicated Category: Medical Qualifiers: Asthma complication type: with acute exacerbation Asthma persistence: intermittent Asthma severity: mild Qualified Code(s): J45.21 - Mild intermittent asthma with (acute) exacerbation (4) Chronic rhinitis: Code(s): J31.0 - Chronic rhinitis Category: Medical Plan Continue Flovent to twice a day start Fluticasone nasal spray ANNELISE as needed antihistamines as needed 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
--- OUTSIDE RECORDS SUMMARY | 2024-10-24 16:25 | XMS_ITS ---
Author Organization [facility] Address [address] [place] [address] Care Team Providers Care Derrick Boat Lever Operator Name Role Phone Luis Sonja Primary Care Provider Wayne Hinkle [phone] REASON FOR VISIT plantar fasciitis Encounters Encounter Location Date Provider Diagnosis [facility] [address] [place] [address] 07/30/2023 Wayne Menon Plan Of Treatment No Information Progress Notes * Kelsey CERON LDOB:[birth year] (67 yo F)Acc No.[id number]:07/30/2023 Patient:?Kelsey Ceron :1955???Age:67 Y???Sex:Female Address:[address] [place] [address] [place] [address] * true * Date:? Generated for Printi ladarius/Jose/eTransmitting on:?10/24/2024 04:24 PM EDT
--- OUTSIDE RECORDS SUMMARY | 2024-10-24 16:25 | XMS_ITS ---
Author Name [facility] Organization Unknown Care Team Organization Name Specialty Phone Email Start Date End [facility] 12/07/2023
--- OUTSIDE RECORDS SUMMARY | 2024-10-24 16:25 | XMS_ITS | Data Portability ---
Author Organization [place] - [facility], [facility] Address [address] [place] [phone] Care Team Providers Care Stone Repairer Name Role Phone MANDY MARSHALL Primary Care Provider Assessment Encounter Date Assessment Date Assessment LastModified by Organization Details LastModified Time 06/23/2024 06/23/2024 Patient presents with non-pulsatile tinnitus. Otologic exam unremarkable. Audiometric testing demonstrates bilateral neurosensory hearing loss with excellent speech recognition. We reviewed that unfortunately there is no known medical nor surgical cure for tinnitus. I have recommended the use of hearing protection as needed. They should also use masking techniques with background noises that modulate to decrease perception of non-pulsatile tinnitus. Other therapies to improve tolerance of tinnitus were reviewed, to include biofeedback, sound retraining, and cognitive behavioral therapy. We discussed that high stress, low sleep and high caffeine intake can also be contributing factors. A brochure was provided to patient to read at home. Patient should follow-up in 1 year for audiometric testing. Discussed that she should call sooner with any perceived change, particularly if it has sudden onset. [email or web address] Not available 06/23/2024 11:28:17 Plan of Treatment Reminders Order Date Submit Date Provider Last Modified By Organization Details Last Modified Time Details Appointments None record ed. Lab None record ed. Referral None record ed. Procedures None record ed. Surgeries None record ed. Imaging None record ed. Medication Orders None record ed. Patient TargetsNo targets recorded. Patient InstructionsNo instructions recorded. Reason for Referral None Reported. Results Created Date Observation Date Name Description Value Unit Range Abnormal Flag Note LastModifiedBy Organization Detail LastModifiedTime 06/23/20 24 audio gram No observ ation record ed. BARCODE Not Available 2023 12:35:03 Result Notes None recorded. Problems Name Problem SNOMED Code Status Onset Date Resolution Date Notes Provider Name and Address Organization Details Recorded Time Sensorineur al hearing loss of bilateral ears 411861789 Active 2023 NO ROMO [place], CCC-A [address] [facility],[place] [address], [place], [address], [facility] - [facility] 4 10:38:03 Bilateral tinnitus 4398981527396 Active 2023 MADIHA MURDOCK PA-C [address] [facility],[place] [address], [place], [phone], [facility] - [facility] 4 10:55:45 Problem Notes None recorded. Procedures Surgical History Date Name Laterality Status Provider Name and Address Organization Details Recorded Time 06/23/2024 Comp Audio with Tymps (79069 & 88619) completed NO ROMO [place], [facility] [address] [facility],[place] [address], [place], [address], [facility] 06/23/2024 10:37:51 Imaging Results Imaging Date Name Status LastModified by Organiz ation Details LastModified Time 06/23/2024 audiogram completed BARCODE Information no t available 06/23/2024 12:35:03 Procedure Notes None recorded. Medical Equipment None Reported. Medications Name Sig Start Date Stop Date Status Note LastModified by Organization Details LastModified Time cyclobenzapr ine 10 mg tablet active Not Available Not Available Not Available atorvastatin 80 mg tablet active Not Available Not Available Not Available doxycycline hyclate 100 mg capsule PLEASE SEE ATTACHED FOR DETAILED DIRECTIONS active Not Available Not Available N ot Available metoprolol succinate ER 50 mg tablet,exten ded release 24 hr active Not Available Not Available Not Available prednisone 20 mg tablet TAKE 3 TABS BY MOUTH DAILY X 3 DAYS, 2 TABS DAILY X 3 DAYS, THEN 1 TABLET DAILY FOR 3 DAYS active Not Available Not Available No t Available omeprazole 40 mg capsule,ritu yed release active Not Available Not Available Not Available aspirin 81 mg tablet,delay ed release TAKE 1 TABLET BY MOUTH EVERY DAY active Not Available Not Available No t Available doxycycline monohydrate 100 mg tablet TAKE 1 TABLET BY MOUTH TWICE A DAY FOR 10 DAYS active Not Available Not Available No t Available tramadol 50 mg tablet TAKE 1 TABLET BY MOUTH EVERY 6 HOURS NEEDED FOR PAIN active Not Available Not Available No t Available erythromycin 5 mg/gram (0.5 %) eye ointment APPLY TO AFFECTED AREA OF EYELID 3 TIMES A DAY active Not Available Not Available Not Available lisinopril 10 mg tablet active Not Available Not Available Not Available lorazepam 1 mg tablet TAKE 1 TABLET BY MOUTH 1 HOUR PRIOR TO PROCEDURE. MAY REPEAT ONCE active Not Available Not Available No t Available scopolamine 1 mg over 3 days transdermal patch APPLY 1 PATCH TOPICALLY EVERY 72 HOURS NEEDED MOTION SICKNESS active Not Available Not Available No t Available methylpredni solone 4 mg tablets in a dose pack TAKE 6 TABLETS ON DAY 1 DIRECTED ON PACKAGE AND DECREASE BY 1 TAB EACH DAY FOR A TOTAL OF 6 DAYS active Not Available Not Available No t Available albuterol sulfate HFA 90 mcg/actuatio n aerosol inhaler 2 INH INHALED EVERY 6 HOURS NEEDED FOR SHORTNESS OF BREATH OR WHEEZING FOR 30 DAYS active Not Available Not Available Not Available cyclobenzapr ine 5 mg tablet TAKE 1 TABLET BY MOUTH THREE TIMES A DAY FOR 30 DAYS active Not Available Not Available Not Available Paxlovid 300 mg (150 mg x 2)-100 mg tablets in a dose pack TAKE 3 TABLETS BY MOUTH TWICE A DAY FOR 5 DAYS DIRECTED active Not Available Not Available No t Available Vitals Date Recorded Body height Body mass index (BMI) Body weight Provider Name and Address Organization Details Last Updated DateTime 06/23/2024 163.83 cm 40.4 kg/m2 953594.58 g Sarah Michele [place] - [facility] 06/23/2024 11:02:34 Social History None recorded. Functional Status None recorded. Mental Status None recorded. Family History Nothing Reported. Medical History Condition Response Heart Problems Y Arthritis Y Thyroid Problems Y Hypertension Y Gynecological HistoryNo gynecological history recorded. Obstetrics History GPAL:G 0 P 0 0 0 0 Past Encounters Encounter ID Performer Location Encounter Start Date Encounter Closed Date Diagnosis/Indication Diagnosis SNOMED-CT Code Diagnosis ICD10 Code Diagnosis Note [id number] MADIHA MURDOCK PA-C [facility] [address] [address] 06/23/2024 09:46:11 06/23/2024 11:05:58 Sensorineural hearing loss of bilateral ears [id number] H90.3 Audiologic al evaluation results: Right ear: {{Normal N ormal through 2 kHz Mild M oderate Mo derately-s evere Diana re Profoun d Normal hearing#}} {{hearing hearing. s loping to a mild slopi ng to a moderate s loping to moderately severe slo ping to severe slo ping to profound f lat high frequency low frequency mid frequency cookie bite mason curve slop ing to a mild-moder ate SNHL#}} {{with* se nsorineura l hearing loss with condu ctive hearing loss with mixed hearing loss with}} {{excellen t* good fa ir poor no measurable }} word recognitio n. Left ear: {{Normal N ormal through 2 kHz Mild M oderate Mo derately-s evere Diana re Profoun d Normal hearing#}} {{hearing hearing. s loping to a mild slopi ng to a moderate s loping to moderately severe slo ping to severe slo ping to profound f lat high frequency low frequency mid frequency cookie bite mason curve slop ng to a mild-moder ate SNHL#}} {{with* se nsorineura l hearing loss with condu ctive hearing loss with mixed hearing loss with}} {{excellen t* good fa ir poor no measurable }} word recognitio n. Tympanomet ry: Right Ear:{{Type A Type As Type Ad* Type C Type C, shallow & rounded Ty pe B Type B with large volume Cou ld not maintain a hermetic seal}} Left Ear:{{Type A Type As Type Ad* Type C Type C, shallow & rounded Ty pe B Type B with large volume Cou ld not maintain a hermetic seal}} Bilateral tinnitus 69692 18610 102 H93.13 Health Concerns Section Related Observation LastModified by Organization Detai ls LastModified Time None Recorded Concern Status LastModified by Organization Details LastModified Time None Recorded Advance Directives Directive None Recorded Payers Encounter Date Sequence Insurance Name Policy Number Policy Reyes Covered Member ID Reyes Member ID Guarantor Name 06/23/[address] [place] [address] [id number] Kelsey L Walpurgis [id number] Kelsey L Walpurgis Notes Date Note Type Note Provider Name and Address Organization Details Recorded Time 06/23/2024 text/html 68 year old zayra arce presents for evaluation of the ears and hearing. She reports she listens to the television at a rather high volume. She notes family and friends complain that her hearing is poor. Long slow decline over time. She reports a constant white noise in the ears for about 6 months. Also a ringing noise. Bilateral. Denies otalgia and otorrhea. Sometimes when she bends forward there is a sensation of water in the ears. A provider did tell her she had some fluid in the ears a while back. Has been taking antihistamine for a couple of weeks and that sensation has abated. No significant history of noise exposure. She has a history of recurrent otitis as a child and a few as an adult, most recently about 2 years ago. She has never had an ear surgery. MADIHA MURDOCK PA-C [address] [place] [address],[place] [address], [place], [phone], [facility] - [facility] 06/23/2024 11:28:35 OBGyn Episode No OBEpisode recorded.
--- OUTSIDE RECORDS SUMMARY | 2024-10-24 16:25 | XMS_ITS ---
[facility] Organization [facility] [place] Address [address] [place] [address] Care Team Providers Care Mmd Unit Teacher Name Role Phone Sonja Smith Primary Care Provider Wayne Hinkle Unavailable [phone] Allergies Allergen (clinical drug ingredient) Drug/Non Drug Allergy documented on EMR Reaction Allergy Type Onset Date Status sulfamethoxazole / trimethoprim Bactrim stomach upset Drug Allergy Active Seasonale Unknown Drug Allergy Active Vicodin Unknown Drug Allergy Active Penicillin Unknown Drug Allergy Active REASON FOR VISIT PCP: 07/12/2023 Medications Medication SIG (Take, Route, Frequency, Duration) Notes Start Date End Date Status predniSONE 40g Once a day Not- Taking Valium 10 MG 1 tablet as needed Orally Twice a day for 5 days 09/26/2019 Not-Taking Qvar Not-Taking Valium 10 MG 1 tablet as needed Orally Twice a day for 10 days 03/23/2017 Not-Taking Metopirone Not-Takin g Voltaren 1 % as directed Externally 01/19/2022 Not-Taking Physical Therapy . . . 2-3x/week for 3- 4 weeks 01/19/2022 Not-Taking Zestril 10 MG Orally 09/01/2016 Activ e Vitamin D Active Walking Boot/Pneumatic As directed Wear Daily for Until further notice 01/30/2022 Active Multivitamin Active Omeprazole Active Naproxen Not-Taking Move Free Joint Health Advance Active MiraLax Active Fungi-Nail 25 % as directed External ly Twice daily to nails for 30 days Not-Taking flovent HFA Active flonase Active Metoprolol Succinate ER 25 MG TAKE 2 TABS BY MOUTH DAILY FOR 360 DAYS. Oral for 90 Active Loratadine Allergy Active Atorvastatin Calcium 40 MG 1 tablet Orally Once a day 09/01/2016 Active aspirin baby Active Biotin Active Calcium Active Motrin Active Tylenol Arthritis Pain Active Melatonin Active Social History Tobacco Use: Social History Observation Description Date Details (start date - stop date) Never Smoker NA - NA Tobacco Use/Smoking Question Answer Notes Are you a: nonsmoker Alcohol Screen Question Answer Notes Did you have a drink contain ing alcohol in the past year? Yes How often did you have a dri nk containing alcohol in the past year? Monthly or less (1 point) How many drinks did you have on a typical day when you were drinking in the past year? 1 or 2 drinks (0 point) Points 1 Interpretation Negative Tobacco use other than smoking: Question Answer Notes Are you an other tobacco user? No Vital Signs Height 5 ft 6 in in 08/04/2023 Weight 230 lbs 08/04/2023 BMI 37.12 kg/m2 08/04/2023 Encounters Encounter Location Date Provider Diagnosis [facility] [address] [address] 08/04/2023 Wayne Menon Plantar fascial fibromatosis M72.2 ; Primary osteoarthritis, left ankle and foot M19.072 ; Primary osteoarthritis, right ankle and foot M19.071 ; Tinea unguium B35.1 ; Plantar fascial fibromatosis M72.2 and Neuralgia and neuritis, unspecified M79.2 Assessments Encounter Date Diagnosis (ICD Code) Assessment Notes Treatment Notes Treatment Clinical Notes Section Notes 08/04/2023 Plantar fascial fibromatosis (ICD-10 - M72.2) 08/04/2023 Primary osteoarthritis, left ankle and foot (ICD-10 - M19.072) 08/04/2023 Primary osteoarthritis, right ankle and foot (ICD-10 - M19.071) 08/04/2023 Tinea unguium (ICD-10 - B35.1) 08/04/2023 Plantar fascial fibromatosis (ICD-10 - M72.2) 08/04/2023 Neuralgia and neuritis, unspecified (ICD-10 - M79.2) Plan Of Treatment Next Appt Details Follow Up: prn, Reason: Progress Notes * Kelsey CERON LDOB:[birth year] (67 yo F)Acc No.[id number]:08/04/2023 Progress Note Patient:Kelsey Meléndez Provider:?Wayne Menon DPM :1955???Age:67 Y???Sex:Female D ate:08/04/2023 Address:[address] [place] [address] alvaro [id number] Pcp:Sonja Smith Subjective: * Chief Complaints: * ???PCP: 07/12/2023 * HPI: ???Foot Pain:?Nature:?sharp, aching, swelling.?Location?Rearfoot and ankle , Left .?Course:?intermittent.?Aggrevated:?any pressure, standing, walking.?Treatments:?casting has helped only slightly; pt saw Dr. Jose for sx consult and does not want to proceed with this.?Heel pain:?Nature:?sharp pain, aching.?Location:?Proximal plantar aspect of Heel, LEFT.?Duration:?more than six months .?Onset/Cause:?unknown.?Course:?intermittent.?Aggrevated:?walking first thing in the morning/after rest.?Treatments:?innersoles/orthotics; wearing boot helps greatly , AFO-nightsplint.?Severity/Quality:?States 8 out of 10 at worst , States 2 out of 10 with cast boot on.?Skin problems:?Nature:?discolored.?Location:?Left , 1st, 2nd, Toe(s).?Duration:?several years.?Onset/Cause:?unknown.? * ROS:?General/Constitutional:?Nausea?denies.?Vomiting?denies.?Hunger Thirst?denies.?Loss appetite?denies.?Chills?denies.?Fatigue?denies.?Fever?denies.?Night Sweats?denies.?Unexplained weight loss?denies.?Unexplained weight gain?denies.?HEENTM:?Dentures?denies.?Dizziness?denies.?Glasses/contacts?denies.?Retinopathy?de nies.?Blurred/double vision?denies.?TMJ?denies.?Discharge/drainage?denies.?Implants?denies.?Sore throat?denies.?Dental implants?denies.?Hard of hearing ?denies.?Difficulty chewing/swallowing/speaking?denies.?Nose bleeds?denies.?Sore mouth?denies.?Respiratory:?On Oxygen?denies.?Pneumonia/pleurisy?denies.?Bronchitis?denies.?Emphysema?denies.?C oughing?denies.?Cough blood?denies.?Shortness of breath?denies.?Wheezing?denies.?Cardiovascular:?Pacemaker?denies.?MVP?denies.?WPW?denies.?CHF?denies.?Heart attack?denies.?Septal defect?denies.?Rapid beat?denies.?Chest pain ?denies.?Atrial Fib.?denies.?Murmur/Palpitations?denies.?Gastrointestinal:?Hemorrhoids?denies.?Stomach/Abdominal pain?denies.?Dark blood stool?denies.?Irritable bowel ?denies.?Constipation?denies.?Diarrhea?denies.?Hematology:?Swelling?denies.?Clots?denies.?Varicose Veins?denies.?Bruising?denies.?Bleeding problem?denies.?Genitourinary:?Blood urine?denies.?Frequent/Painfu/urination/bladder control?denies.?Kidney stones?denies.?Infection (UTI)?denies.?Nephropathy?denies.?sex trans dis (STD)?denies.?Prostate?denies.?Musculoskeletal:?Hammertoes?denies.?Bunions?denies.?Back Pain?denies.?Muscle Cramps/ Resting?denies.?Muscle cramps / walking?denies.?Generalized aches and pains?admits.?Weakness?denies.?Integ.:?Song?denies.?Scars?denies.?Corns/calluses?denies.?Ingrown nails?denies.?Painful nails?denies.?Open Sores?denies.?Rashes?denies.?Neurologic:?Difficulty sleeping?denies.?Brain disorder?denies.?Numbness?denies.?Balance trouble?denies.?Confusion?denies.?Fainting/blackouts?denies.?Tingling?denies.?Tr emors?denies.? * Medical History:? * Surgical History:?disc surge ry 2004 * Hospitalization/Major Diagno stic Procedure:?No Hospitalization History. * Family History:?Mother: dece ased, poor circulation, heart attack, diagnosed with Other malignant neoplasm of unspecified site.?Father: .?Paternal Grand Mother: unknown, diagnosed with Family history of arthritis, Other malignant neoplasm of unspecified site.? * Social History:?Tobacco Use:?Tobacco Use/Smoking?Are you a:?nonsmoker ?Tobacco use other than smoking?Are you an other tobacco user??No ???Drugs/Alcohol:?Drugs?Have you used drugs other than those for medical reasons in the past 12 months??No ?Alcohol Screen?Did you have a drink containing alcohol in the past year??Yes ?How often did you have a drink containing alcohol in the past year??Monthly or less (1 point) ?How many drinks did you have on a typical day when you were drinking in the past year??1 or 2 drinks (0 point) ?Points?1 ?Interpretation?Negative ???Miscellaneous:?Caffeine: 3-5 cups per day. ?no Children, none. ?no Exercise, none. ?Marital status: single, partner. 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 * Medications:?TakingMelatonin Tylenol Arthritis Pain Motrin aspirin baby Atorvastatin Calcium 40 MG Tablet 1 tablet Orally Once a dayBiotin Calcium flonase flovent HFA Loratadine , Notes: AllergyMetoprolol Succinate ER 25 MG Tablet Extended Release 24 Hour TAKE 2 TABS BY MOUTH DAILY FOR 360 DAYS. Oral MiraLax Move Free Joint Health Advance Multivitamin Omeprazole Vitamin D Zestril 10 MG Tablet Orally Walking Boot/Pneumatic As directed Wear DailyTaking Melatonin Taking Tylenol Arthritis Pain Taking Motrin Taking aspirin baby Taking Atorvastatin Calcium 40 MG Tablet 1 tablet Orally Once a dayTaking Biotin Taking Calcium Taking flonase Taking flovent HFA Taking Loratadine , Notes: AllergyTaking Metoprolol Succinate ER 25 MG Tablet Extended Release 24 Hour TAKE 2 TABS BY MOUTH DAILY FOR 360 DAYS. Oral Taking MiraLax Taking Move Free Joint Health Advance Taking Multivitamin Taking Omeprazole Taking Vitamin D Taking Zestril 10 MG Tablet Orally Taking Walking Boot/Pneumatic As directed Wear DailyNot-Taking/PRNFungi-Nail 25 % Solution as directed Externally Twice daily to nailsNaproxen Physical Therapy . . . . 2-3x/weekVoltaren 1 % Gel as directed Externally Metopirone Valium 10 MG Tablet 1 tablet as needed Orally Twice a dayQvar Valium 10 MG Tablet 1 tablet as needed Orally Twice a daypredniSONE 40g Once a dayMedication List reviewed and reconciled with the patientNot-Taking/PRN Fungi-Nail 25 % Solution as directed Externally Twice daily to nailsNot- Taking/PRN Naproxen Not-Taking/PRN Physical Therapy . . . . 2-3x/weekNot-Taking/PRN Voltaren 1 % Gel as directed Externally Not-Taking/PRN Metopirone Not-Taking/PRN Valium 10 MG Tablet 1 tablet as needed Orally Twice a dayNot-Taking/PRN Qvar Not-Taking/PRN Valium 10 MG Tablet 1 tablet as needed Orally Twice a dayNot-Taking/PRN predniSONE 40g Once a dayMedication List reviewed and reconciled with the patient * Allergies:?VicodinSeasonaleB actrim: stomach upsetPenicillinyes[Allergies Verified] Objective: * Vitals:?Ht:5 ft 6 in, Wt:230 , BMI:37.12, Shoe size:9.5, Ht-cm: 167.64 cm, Wt-k.33 kg. * Examination: ???General Examination: ?GENERAL APPEARANCE:?pleasant, alert, well nourished, well developed, well hydrated, with good attention to hygene/body habitus, and in no acute distress , pleasant, alert, well nourished, well developed, well hydrated, with good attention to hygene/body habitus, and in no acute distress.?ORIENTED:?person,place, and time , person,place, and time.?Neurological: ?SENSORY:?Neurological exam demonstrates pop plantar-medial left heel and lateral left heel.?TINEL'S COMPRESSION:?Negative tarsal tunnel, hiren pedis, and medial calcaneal nerves B/L , Negative tarsal tunnel, hiren pedis, and medial calcaneal nerves, B/L.?BABINSKI REFLEX:?absent , Absent, B/L.?Neuroma Pain: ?PALPATION:?No interspace pain noted on palpation.?Vascular: ?DP PULSES:? 2/4, B/L.?PT PULSES:? 2/4, B/L.?EDEMA:? /, Left, Ankle(s) , no edema.?TELANGECTASIA:? moderate.?VARICOSITIES:? present, moderate, nonpainful, B/L.?Dermatologic: ?SKIN FINDINGS:?Skin exam reveals normal texture, elasticity, and tugor. There are no masses. The interspaces are clear, B/L , Skin exam reveals normal texture, elasticity, and tugor. There are no masses. The interspaces are clear.?Orthopedic: ?MUSCLE STRENGTH:?5/5 all groups in a symmetrical fashion , B/L.?FOOT MORPHOLOGY:? Pes Planus structure, B/L.?Heel Pain: ?INSPECTION REVEALS:?Pain on Palpation to Plantar Fascia med. and central bands, intrinsic musc., infracalcaneal bursa, and med calc tubercle , LEFT foot--izabella plm.?Nails: ?NAILS are:? Elongated, overgrown, dystrophic, lytic, greater than 3mm thick, discolored and friable with crumbly malodorous subungual debris, TA, T1.? Assessment: * Assessment: 1.?Primary osteoarthritis, l eft ankle and foot - M19.072?2.?Plantar fascial fibromatosis - M72.2 (Primary)?3.?Primary osteoarthritis, right ankle and foot - M19.071?4.?Tinea unguium - B35.1?5.?Plantar fascial fibromatosis - M72.2?6.?Neuralgia and neuritis, unspecified - M79.2? Plan: * Treatment: * Procedure Codes:? * Preventive Medicine:? ??Counseling:?Discussion:?-14: Office or other outpatient visit for the evaluation and management of an established patient, which required a medically appropriate history and/or examination and MODERATE level of DECISION MAKING for: 1 OR MORE CHRONIC PROBLEM(S) THATS WORSENING, A NEWLY DIAGNOSED PROBLEM WITH UNCERTAIN PROGNOSIS, AN ACUTE PROBLEM WITH ACCOMPANYING SYSTEMIC SYMPTOMS, AN ACUTE COMPLICATED INJURY WITH MULTIPLE TREATMENT OPTIONS, OR 2 STABLE CHRONIC PROBLEMS THAT POSE(S) A MODERATE RISK OF MORBIDITY. THIS CONDITION MAY ALSO INCLUDE RX DRUG MANAGEMENT, OR A DECISON FOR MINOR SURGERY. When using time for code selection, 30-39 min of total time was spent on the day of the encounter interpreting the data and educating the patient as to the nature of their condition, treatment options available according to their individual PMH, meds, allergies, and overall health/living conditions, as well as any potential risks or complications that may occur from a failure to adhere to, and participate in, the recommended course of therapy. The discussion included a complete verbal, and/or written explanation of the examination results, any x-rays taken, the proposed diagnosis, and outline of the treatment plan. A schedule for future care needs was also explained. The patient verbalized an understanding of the instructions at this time and agreed to be an active participant in their treatment. If the patient should think of any questions or concerns after the visit, I have encouraged the patient to call the office; pt to use cast boot and then try hiking boots instead to see if that works for pain relief.?Fungal Nail Counseling:?The Pt. was counseled on the diagnosis, potential etiologies (including, but not limited to, environmental factors, genetic, immune deficiency), and the multiple treatment options for Onychomycosis. We discussed the risks and benefits of each option from performing no treatment, to ultraviolet light shoe treatment, to laser nail treatment, to applying topical antifungals, to taking oral antifungal medication, to surgical removal of the involved nail(s) with or without performing a matricectomy, or any combination thereof. We discussed the advantages and disadvantages of each of possible treatment and importance for adherence to all the recommended therapies for optimum success. This includes the necessity for weekly emery board self nail home debridements, and control the nail and skin environment as much as possible by only using a fresh, dry pair of shoes/socks each day, as well as keeping the skin as dry as possible through the use of sprays/powders if necessary. Pt was instructed to discard the lidia board after use to prevent reinfectoin of the involved nail(s). We discussed the mycological and visual clinical effectiveness of topical vs oral antifungal treatments as well as each ones potential side effects and/or any patient-specific medication interactions. We discussed the reasons behind the important requirement of regular liver function testing with oral antifungal therapy for safety. Patient questions re: use, dosage, successful outcomes, blood tests, and possible pharmacutical interactions were reviewed and the patient verbalized that all answers were clearly understood, The Pt prefers topical treatment--vicks qd hs.? * Follow Up:?prn * Images: * Sign off status: Completed true * Provider:?Wayne Menon DPM Date:? 024 Generated for Ryan durand/Jose/eTransmitting on:?10/24/2024 04:25 PM EDT History and Physical Notes * HPI (History of Present Illness) Category Sub-Category Detail Notes Category Not es Heel pain Duration: more than six months Nature: sharp pain, aching Severity/Quality: States 8 out of 10 a t worst , States 2 out of 10 with cast boot on Location: Proximal plantar asp ect of Heel, LEFT Onset/Cause: unknown Aggravated: walking first thing in the morning/after rest Course: intermittent Treatments: innersoles/orthotics ; wearing boot helps greatly , AFO-nightsplint Skin problems Nature: discolored Location: Left , 1st, 2nd, Toe (s) Duration: several years Onset/Cause: unknown Foot Pain Aggrevated: any pressure, standing, walk ing Course: intermittent Nature: sharp, aching, swell ing Treatments: casting has helped o nly slightly; pt saw Dr. Jose for sx consult and does not want to proceed with this Location Rearfoot and ankle , Left Examination Category Sub-Category Detail Notes Category Not es Neuroma Pain PALPATION: No interspace pain noted on palpation Heel Pain INSPECTION REVEALS: Pain on Palp ation to Plantar Fascia med. and central bands, intrinsic musc., infracalcaneal bursa, and med calc tubercle , LEFT foot--izabella plm Neurological SENSORY: Neurological exa m demonstrates pop plantar-medial left heel and lateral left heel BABINSKI REFLEX: absent , Absent, B/L TINEL'S COMPRESSION: Negative tarsal lizet delores, hiren pedis, and medial calcaneal nerves B/L , Negative tarsal tunnel, hiren pedis, and medial calcaneal nerves, B/L Dermatologic SKIN FINDINGS: Skin exam reveal s normal texture, elasticity, and tugor. There are no masses. The interspaces are clear, B/L , Skin exam reveals normal texture, elasticity, and tugor. There are no masses. The interspaces are clear Orthopedic FOOT MORPHOLOGY: Pes Planus structure, B/ L MUSCLE STRENGTH: 5/5 all groups in a symmetrical fashion , B/L General Examination GENERAL APPEARANCE: pleasant , alert, well nourished, well developed, well hydrated, with good attention to hygene/body habitus, and in no acute distress , pleasant, alert, well nourished, well developed, well hydrated, with good attention to hygene/body habitus, and in no acute distress ORIENTED: person,place, and ti me , person,place, and time Vascular DP PULSES (B): 2/4, B/L PT PULSES (B): 2/4, B/L EDEMA (C): 1/4, Left, Ankle(s) , no edema TELANGECTASIA: moderate VARICOSITIES: present, moderate, n onpainful, B/L Nails NAILS are: Elongated, overg rown, dystrophic, lytic, greater than 3mm thick, discolored and friable with crumbly malodorous subungual debris, TA, T1
--- OUTSIDE RECORDS SUMMARY | 2024-10-24 16:25 | XMS_ITS | Continuity of Care Document ---
Author Organization [facility] Address [address] [place] [address] [address] [place] [phone] Phone Care Team Providers Care Loss Mitigation Specialist Name Role Phone Alex BILL, TAMMY, ISREAL, Julio C Unavailable U navailable Procedures Procedure Date Duplex Scan-extrem Veins; Comp Office/Oupt E&M New Pt 30 Mins Advance Directives Directive Yes / No Effective Date File Name No Information Encounters Encounter Description Practice Location Reason(s) For Visit Diagnoses Date Provider Providers Copied on Encounter [facility], [address] [place] [address] [address], [id number], [place] tel:[phone] [facility] No Information 4 Alex BILL, TAMMY, ISREAL Bunch. [facility] [facility] [place] [address], [place], [place], [id number] , [place]. tel:[phone] Referring Provider: DOES NOT HAVE REF. [facility], [address] [place] [address] [address], [id number], [place] tel:[phone] [facility] Varicose veins of bilateral lower extremities with painEdema, unspecified Mar-0 3 Frederic BILL FACS TAMMY Almaguer. [address] [place] [address], [place], [address], [place]. tel:[phone] Referring Provider: Telma BACH, [facility] [address], [place], [address]. tel:[phone] Office/Oupt E&M New Pt 30 Mins [facility], [address], [place], [id number], [place] tel:[phone] [facility] [place] [facility] [place] Venous insufficiency (chronic) (peripheral)Lo calized edema 3 Frederic BILL FACS [facility] Telma Almaguer. [address], [address], [place], [address], [place]. tel:[phone] Referring Provider: Telma De La Garza MD FACS [facility], [address], [place], [address]. tel:[phone] Family History Family Member Type Diagnosis Age At Onset No Information Payers Payer name Insurance type Covered libertarian ID Nemesio lópez([employer] [facility] [id number] Social History Type Description Quantity Date Captured Comments Alcohol Use Details Unknown Caffeine Use Details Unknown Tobacco Use Status No Information Smoking Status No Information Sex Female Chief Complaint And Reason For Visit No Information Reason For Referral Reason For Referral No Information Plan Of Treatment Date Type Action Status Goal Diet education completed Referral Ordered: Weight management: Referral to physician timeframe: 3 Months (related to Body mass index (BMI) 38.0-38.9, adult) ordered History Of Present Illness Encounter Date Complaint History Of Prese nt Illness No Information Functional Status Date Functional Assessmen t No Information Instructions Date Instruction Additional Infor mation Diet education Related to Body mass index (BMI) 38.0-38.9, adult Giving Encouragement to exercise Related to Body mass index (BMI) 38.0-38.9, adult Lifestyle education Related to B lindsey mass index (BMI) 38.0-38.9, adult Patient education booklet given Related to Venous insufficiency (chronic) (peripheral) Assessments Type Assessment Date No Information Patient Care Teams Name Effective Dates (start - stop) Status Members No Information
--- OUTSIDE RECORDS SUMMARY | 2024-10-24 16:25 | XMS_ITS | Patient Health Record ---
[facility] Address [address] [facility] [place] [facility] [place] [address] Care Team Providers Care Lodge Attendant Name Role Phone Luis Sonja Primary Care Provider Wayne Hinkle Unavailable [phone] Allergies Allergen (clinical drug ingredient) Drug/Non Drug Allergy documented on EMR Reaction Allergy Type Onset Date Status sulfamethoxazole / trimethoprim Bactrim stomach upset Drug Allergy Active Seasonale Unknown Drug Allergy Active Vicodin Unknown Drug Allergy Active Penicillin Unknown Drug Allergy Active Reason For Referral No Information Medications Medication SIG (Take, Route, Frequency, Duration) Notes Start Date End Date Status Atorvastatin Calcium 40 MG 1 tablet Orally Once a day 09/01/2016 Active aspirin baby Active Biotin Active predniSONE 40g Once a day Not- Taking Valium 10 MG 1 tablet as needed Orally Twice a day for 5 days 09/26/2019 Not-Taking Fungi-Nail 25 % as directed External ly Twice daily to nails for 30 days Not-Taking flovent HFA Active flonase Active Calcium Active Move Free Joint Health Advance Active MiraLax Active Metoprolol Succinate ER 25 MG TAKE 2 TABS BY MOUTH DAILY FOR 360 DAYS. Oral for 90 Active Loratadine Allergy Active Multivitamin Active Omeprazole Active Naproxen Not-Taking Voltaren 1 % as directed Externally 01/19/2022 Not-Taking Physical Therapy . . . 2-3x/week for 3- 4 weeks 01/19/2022 Not-Taking Zestril 10 MG Orally 09/01/2016 Activ e Vitamin D Active Motrin Active Qvar Not-Taking Tylenol Arthritis Pain Active Valium 10 MG 1 tablet as needed Orally Twice a day for 10 days 03/23/2017 Not-Taking Melatonin Active Metopirone Not-Takin g Walking Boot/Pneumatic As directed Wear Daily for Until further notice 01/30/2022 Active Immunizations Vaccine Route Administration Date Status Comme nts COVID-19 Pfizer BioNTech Vaccine Unknown 10/11/2021 Administered 1st 09/12/20 2nd 10/03/20 3rd 04/02/21 Social History Tobacco Use: Social History Observation [...] Are you an other tobacco user? No Problems Problem Type SNOMED Code ICD Code Onset Dates Problem Status W/U Status Risk Notes Problem Localized, primary osteoarthritis of the ankle and/or foot (316588711) Primary osteoarthrit is, right ankle and foot (M19.071) Active confirmed Problem Localized, primary osteoarthritis of the ankle and/or foot (922755556) Primary osteoarthrit is, left ankle and foot (M19.072) Active confirmed Plan Of Treatment Pending Test Test Name Order Date X ray : Ankle, left 3V 01/19/2022 X ray : Foot, left 2V 09/01/2016 X ray : Foot, right 2V 09/01/2016 X ray : Foot, left 3V 09/26/2019 X ray : Foot, right 3V 03/23/2017 16112, J0702- INJECT or DRAIN, JOINT/BUR SA 02/12/[id number] TENDON SHEATH/LIGAMENT 0 02/12/2022 Insurance Providers Payer Name Payer Address Payer Phone Subscriber Number Group Number Insured Name Patient Relationship to Insured Coverage Start Date Coverage End Date [facility] [address] [facility] [place] [id number] [phone] [id number] Kelsey Cullen Self - patient is the insured Medical (General) History Medical History History ICD Code Arthritis Back,Hip,and Knee pain Cholesterol High blood pressure Joint implants/screws Reflux Vascular phlebitis (clots) Surgical History Surgery Date(Month/Year) disc surgery 2003
--- OUTSIDE RECORDS SUMMARY | 2024-10-24 16:25 | XMS_ITS | Encounter Summary ---
Author Organization [facility] Address [address] [place] [address] Care Team Providers Care Rock Crusher Name Role Phone Sonja Smith MD Primary Care Provider + Reason for Visit * Reason Onset Date Comments lab work 10/19/2024 Encounter Details Date Type Department Care Team (Late st Contact Info) Description 10/19/2024 Telephone [facility] [address] [facility] [address] [place] [phone] Emiyl Lopez MD [address] [place] [address] lab work Social History Tobacco Use Types Packs/Day Years Used Date Smoking Tobacco: Never Smokeless Tobacco: Never Alcohol Use Standard Drinks/Week Comments Yes 0 (1 standard drink = 0.6 oz pur e alcohol) Comments Unknown Sex and Gender Information Value Date Recorded Sex Assigned at Not on file Legal Sex Female 9:28 AM EST Gender Identity Not on file Sexual Orientation Not on file documented as of this encounter Progress Notes * Milagro Arndt MA - 10/23/2024 10:45 AM EDT Lipid order mailed * Liban Buckner NP - 10/23/2024 10:25 AM EDT If she wants to be proactive and get this drawn prior to her appointment that would be great. * Milagro Arndt MA - 10/23/2024 9:58 AM EDT Spoke with patient. She had a CHEM on / for review. She wants to know if you want aLIPID panel since we manage her statin and pcp has not drawn. * Liban Buckner NP - 10/23/2024 8:02 AM EDT Bmp may be helpful * Edith Bailey - 10/19/2024 11:55 AM EDT The patient called, she would like to know if she needs to have labs done before her appointment on11/22/24. Please call her back at [phone]. documented in this encounter Plan of Treatment Upcoming Encounters Date Type Department Care Team (Late st Contact Info) Description 11/22/2024 10:20 AM EDT Office Visit [facility] [address] [facility] [address] [place] [address] Emily Lopez MD [address] [place] [address] Scheduled Orders Name Type Priority Associated Diagnoses Orde r Schedule Lipid panel with reflex to direct LDL Lab Routine Pure hypercholesterolemia 1 Occurrences starting 10/23/2024 until 10/23/2025 documented as of this encounter Visit Diagnoses Diagnosis Paroxysmal atrial fibrillation (CMS/HCC V24, CMS/HCC V28)- Primary Atrial fibrillation Pure hypercholesterolemia documented in this encounter Care Teams Rock Crusher Relationship Specialty Start Date End Date Sonja Smith MD [address] [place] [phone] PCP - General 07/06/22 documented as of this encounter
--- OUTSIDE RECORDS SUMMARY | 2024-10-24 16:25 | XMS_ITS | Clinical Summary ---
Author Organization [employer] [facility] Address [address] [place] [address] Care Team Providers Care Service Observer Chief Name Role Phone Sonja Smith MD Primary Care Provider + Encounters Date Type Department Care Team Description 10/19/2024 Telephone [facility] [address] [place] [phone] Emily Lopez MD lab work 09/21/2024 Telephone [facility] [address] [place] [phone] Emily Lopez MD Appointment 08/29/2024 Telephone Gastroenterology - [address] [place] [phone] Ana Cristina Lee MD Advice Only from Last 3 Months Surgical History Surgery Date Site/Laterality Comments OTHER SURGICAL HISTORY 09/25/2014 Right PROCEDURE: ---- OTHER ----; COMMENT: EVLT R lower leg OTHER SURGICAL HISTORY Left PROCEDURE: ---- OTHER ----; COMMENT: EVLT COLONOSCOPY 01/10/2014 PROCEDURE: HISTORICAL COLONOSCOPY BACK SURGERY 2004 PROCEDURE: HISTORICAL BACK SURGERY; COMMENT: disc replacement CYSTOSCOPY 1976 PROCEDURE: HISTORICAL CYSTOSCOPY TONSILLECTOMY 1962 PROCEDURE: HISTORICAL TONSILLECTOMY UPPER GASTROINTESTINAL ENDOSCOPY 01/10/2014 PROCEDURE: UPPER GI ENDOSCOPY/EXAM COLONOSCOPY 10/08 PROCEDURE: HISTORICAL COLONOSCOPY BREAST BIOPSY PROCEDURE: BX BREAST; PERC NEEDLE CORE W/IMAG GUID; COMMENT: rt. needle bx.-benign COLONOSCOPY 01/11/2020 PROCEDURE: HISTORICAL COLONOSCOPY; COMMENT: Normal. Repeat 10 years Medical History Medical History Date Comments Hypertension 06/14/2015 DX:Hypertension Goiter 06/14/2015 DX:Goiter Esophageal reflux 06/14/2015 DX:Esophageal reflux Allergic rhinitis 06/14/2015 DX:Allergic rh initis Osteopenia 06/14/2015 DX:Osteopenia; C OMMENT: BD 12/2013 Osteoarthritis 06/14/2015 DX:Osteoarthriti s; COMMENT: Knees, hips Varicose veins 06/14/2015 DX:Varicose vein s H/O hematuria 06/14/2015 DX:H/O hematuria Cervical disc herniation 06/14/2015 DX:Cerv ical disc herniation; COMMENT: C 6-7 Peripheral vascular insuffic iency ([facility] V24) 06/14/2015 DX:Peripheral vascular insuf ficiency ([facility]) Anxiety 06/18/2015 DX:Anxiety Pernicious anemia 06/18/2015 DX:Pernicious anemia Pulmonary nodules 07/21/2017 DX:Pulmonary n odules Pneumonitis 07/21/2017 DX:Pneumonitis Family History Medical History Relation Name Comments Colon polyps Father cumulative tota l unknown Lung cancer Father CAD Other: bladder cancer Father Heart attack Mother age 41 Other: ovarian cancer Mother also c ervical cancer Colon cancer Other maternal first cousin- Colon polyps Paternal Grandfather otoniel sriram total unknown; age at dx ?? Breast cancer Paternal Grandmother second primary breast ca at age 45 Other: cancer,other Paternal Grandmother uterine vs ovarian Other: stomach cancer Paternal Grandmother uncertain age at onset-dx at 68 and Relation Name Status Comments Father Mother Other Paternal Grandfather Paternal Grandmother Social History Tobacco Use Types Packs/Day Years Used Date Smoking Tobacco: Never Smokeless Tobacco: Never Alcohol Use Standard Drinks/Week Comments Yes 0 (1 standard drink = 0.6 oz pur e alcohol) Comments Unknown Sex and Gender Information Value Date Recorded Sex Assigned at Not on file Legal Sex Female 9:28 AM EST Gender Identity Not on file Sexual Orientation Not on file Obstetrics History Last Filed Vital Signs Vital Sign Reading Time Taken Comments Blood Pressure 138/88 01/18/2023 1:40 PM EDT Sitting R Arm Pulse 75 01/18/2023 1:40 PM EDT Temperature - - Respiratory Rate - - Oxygen Saturation - - Inhaled Oxygen Concentration - - Weight 111 kg (244 lb 12.8 oz) 01/18/2023 1:40 PM EDT Height 167.6 cm (5' 6 ) 01/18/2023 1:40 PM EDT Body Mass Index 39.51 01/18/2023 1:40 PM EDT Plan of Treatment Upcoming Encounters Date Type Department Care Team (Late st Contact Info) Description 11/22/2024 10:20 AM EDT Office Visit [facility] [address] [facility] [address] [place] [phone] Emily Lopez MD [address] [place] [address] Health Maintenance Due Date Last Done Comments Breast Cancer Screening 1955 Pneumococcal Vaccine: 50+ Years (1 of 1 - PCV) 2006 RSV Immunization Adult Patients (1 - Risk 60-74 years 1-dose series) 2016 Cholesterol Screening (Lipid Panel) 06/13/2022 Colorectal Cancer Screening: Colonoscopy 06/13/2022 Depression Screening 06/13/2022 Falls Risk Assessment 06/13/2022 Hepatitis C Screening 06/13/2022 Medicare Annual Wellness Visit 06/13/2022 Osteoporosis Screening (Bone Density Screening) 06/13/2022 Social Influencers of Health Screening 06/13/2022 Hypertension/CHF/CAD Annual BMP Blood Test 06/14/2022 COVID-19 Vaccine ( season) 2024 10/11/2021, 04/02/2021, 10/03/2020, Additional history exists Influenza Vaccine (Season Ended) 2025 02/21/2022, 03/31/2021, 05/02/2020, Additional history exists DTaP,Tdap,and Td Vaccines (2 - Td or Tdap) 02/18/2027 02/18/2017 Zoster Vaccines Completed 10/22/2017, 08/05/2017 HIB Vaccines Aged Out No longer eligi ble based on patient's age to complete this topic HPV Vaccines Aged Out No longer eligi ble based on patient's age to complete this topic Hepatitis A Vaccines Aged Out No long er eligible based on patient's age to complete this topic Hepatitis B Vaccines Aged Out No long er eligible based on patient's age to complete this topic IPV Vaccines Aged Out No longer eligi ble based on patient's age to complete this topic MMR Vaccines Aged Out No longer eligi ble based on patient's age to complete this topic Meningococcal ACWY Vaccine Aged Out N o longer eligible based on patient's age to complete this topic Meningococcal B Vaccine Aged Out No l onger eligible based on patient's age to complete this topic RSV Immunization Patients Under 20 months Aged Out No longer eligible based on patient's age to complete this topic Varicella Vaccines Aged Out No longer eligible based on patient's age to complete this topic Insurance MEDICARE [employer] [place] MEDICARE ADVANTAGE Advance Directives Documents on File Type Date Recorded 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
--- OUTSIDE RECORDS SUMMARY | 2024-10-24 16:25 | XMS_ITS ---
Author Organization [facility] Address [address] [place] [address] Care Team Providers [employer] Regist[employer] Name Role Phone Sonja Smith Primary Care Provider Wayne Hinkle Unavailable [phone] REASON FOR VISIT Last Visit PCP 05/05/2021, Heel pain Medications Medication SIG (Take, Route, Frequency, Duration) Notes Start Date End Date Status Valium 10 MG 1 tablet as needed Orally Twice a day for 10 days 03/23/2017 Not-Taking Metopirone Not-Takin g Valium 10 MG 1 tablet as needed Orally Twice a day for 5 days 09/26/2019 Not-Taking Qvar Not-Taking predniSONE 40g Once a day Not- Taking Physical Therapy . . . 2-3x/week for 3- 4 weeks 01/19/2022 Active Walking Boot/Pneumatic As directed Wear Daily for Until further notice 01/30/2022 Active Voltaren 1 % as directed Externally 01/19/2022 Active Zestril 10 MG Orally 09/01/2016 Activ e Vitamin D Active MiraLax Active Multivitamin Active Move Free Joint Health Advance Active Omeprazole Active Naproxen Active Fungi-Nail 25 % as directed External ly Twice daily to nails for 30 days Active flovent HFA Active Loratadine Allergy Active Metoprolol Succinate ER 25 MG TAKE 2 TABS BY MOUTH DAILY FOR 360 DAYS. Oral for 90 Active flonase Active aspirin baby Active Biotin Active Atorvastatin Calcium 40 MG 1 tablet Orally Once a day 09/01/2016 Active Calcium Active Social History Tobacco Use: Social History [...] Are you an other tobacco user? No Encounters Encounter Location Date Provider Diagnosis [facility] [place] [address] [place] [address] 05/13/2023 Wayne Menon Plantar fascial fibromatosis M72.2 ; Primary osteoarthritis, left ankle and foot M19.072 ; Primary osteoarthritis, right ankle and foot M19.071 ; Tinea unguium B35.1 ; Plantar fascial fibromatosis M72.2 and Neuralgia and neuritis, unspecified M79.2 Assessments Encounter Date Diagnosis (ICD Code) Assessment Notes Treatment Notes Treatment Clinical Notes Section Notes 05/13/2023 Plantar fascial fibromatosis (ICD-10 - M72.2) 05/13/2023 Primary osteoarthritis, left ankle and foot (ICD-10 - M19.072) 05/13/2023 Primary osteoarthritis, right ankle and foot (ICD-10 - M19.071) 05/13/2023 Tinea unguium (ICD-10 - B35.1) 05/13/2023 Plantar fascial fibromatosis (ICD-10 - M72.2) 05/13/2023 Neuralgia and neuritis, unspecified (ICD-10 - M79.2) Plan Of Treatment Next Appt Details Follow Up: prn, Reason: Procedure Notes * Category Sub-Category Detail Notes Injection Tendon Sheath or Fascia 97936, J 63 Injection # Plantar Fascia w/ Celestone Soluspan 3mg + 1cc 1% Xylocaine Pl. anes. utilizing aseptic technique. The patient tolerated the procedure well. A dry sterile dressing was applied. Post injection instructions were dispensed, verbally discussed, and confirmed understood by the patient. I explained that a steroid and local anesthetic injection usually decreases pain and inflammation. I explained the possible complications including but not limited to signs/symptoms of steroid flare, infection, atrophy, bruising, discoloration of skin, additional injections may be necessary, LEFT foot--plm heel Med: Joint,Bursa (Sinus Tarsi,AJ) 80321, J0702 Injection # Med/Ankle joint bursa/capsule 1cc 1% Xylo.pl + 3mg Celestone Soluspan utilizing aseptic technique. The patient tolerated the procedure well. A dry sterile dressing was applied. Post injection instructions were dispensed, verbally discussed, and confirmed understood by the patient. I explained that a steroid and local anesthetic injection usually decreases pain and inflammation. I explained the possible complications including but not limited to signs/symptoms of steroid flare, change/deviation in toe position, infection, bruising, atrophy, discoloration of skin, additional injections may be necessary, LEFT ankle and sinus tarsi Progress Notes * Kelsey CERON LDOB:[birth year] (67 yo F)Acc No.[id number]:05/13/2023 Progress Note Patient:?Kelsey Ceron Provider:?Wayne Menon DPM :1955???Age:67 Y???Sex:Female D ate:05/13/2023 Address:[address] [place] [id number] Pcp:Sonja Smith Subjective: * Chief Complaints: * ???Last Visit PCP 05/05/2021H eel pain * HPI: ???Foot Pain:?Nature:?sharp, aching, swelling.?Location?Rearfoot and ankle , Left .?Course:?intermittent.?Aggrevated:?any pressure, standing, walking.?Treatments:?casting has helped only slightly; pt saw Dr. Jose for sx consult and does not want to proceed with this.?Heel pain:?Nature:?sharp pain, aching.?Location:?Proximal plantar aspect of Heel, LEFT.?Duration:?more than six months .?Onset/Cause:?unknown.?Course:?intermittent.?Aggrevated:?walking first thing in the morning/after rest.?Treatments:?innersoles/orthotics.?Severity/Quality:?considered 6 out of 10.?Skin problems:?Nature:?discolored.?Location:?Left , 1st, 2nd, Toe(s).?Duration:?several years.?Onset/Cause:?unknown.?Course:?worsened.? * ROS:?General/Constitutional:?Nausea?denies, denies, denies.?Vomiting?denies, denies, denies.?Hunger Thirst?denies, denies, denies.?Loss appetite?denies, denies, denies.?Chills?denies, denies, denies.?Fatigue?denies, denies, denies.?Fever?denies, denies, denies.?Night Sweats?denies, denies, denies.?Unexplained weight loss?denies, denies, denies.?Unexplained weight gain?denies.?Ophthalmologic:?Blurred vision?denies, denies.?Red eye?denies, denies.?HEENTM:?Dentures?denies, denies, denies.?Dizziness?denies, denies, denies.?Glasses/contacts?admits, denies, denies.?Retinopathy?denies, denies, denies.?Blurred/double vision?denies, denies, denies.?TMJ?denies, denies, denies.?Discharge/drainage?denies, denies, denies.?Implants?denies, denies, denies.?Sore throat?denies.?Dental implants?denies.?Hard of hearing ?denies, denies, denies.?Difficulty chewing/swallowing/speaking?denies, denies, denies.?Nose bleeds?denies, denies, denies.?Sore mouth?denies, denies, denies.?Swollen glands?denies, denies.?Respiratory:?On Oxygen?denies, denies, denies.?Pneumonia/pleurisy?denies, denies, denies.?Bronchitis?denies, denies, denies.?Emphysema?denies, denies, denies.?Coughing?denies, denies, denies.?Cough blood?denies, denies, denies.?Shortness of breath?denies, denies, denies.?Wheezing?denies, denies, denies.?Cardiovascular:?Pacemaker?denies, denies, denies.?MVP?denies, denies, denies.?WPW?denies, denies, denies.?CHF?denies, denies, denies.?Heart attack?denies, denies, denies.?Septal defect?denies, denies, denies.?Rapid beat denies, denies, denies.?Chest pain ?denies, denies, denies.?Atrial Fib.?denies, denies, denies.?Murmur/Palpitations?admits, denies, denies.?Gastrointestinal:?Hemorrhoids?denies, denies, denies.?Stomach/Abdominal pain?denies, denies, denies.?Dark blood stool?denies, denies, denies.?Irritable bowel ?denies, denies, denies.?Constipation?admits, denies, denies.?Diarrhea denies, denies, denies.?Vomiting?denies, denies.?Hematology:?Swelling?denies, denies, denies.?Clots?denies.?Varicose Veins?admits.?Bruising?denies, denies, denies.?Bleeding problem?denies, denies, denies.?Genitourinary:?Blood urine?denies, denies, denies.?Frequent/Painfu/urination/bladder control?denies, denies, denies.?Kidney stones?denies, denies, denies.?Infection (UTI)?denies, denies, denies.?Nephropathy?denies, denies, denies. sex trans dis (STD)?denies.?Prostate?denies.?Musculoskeletal:?Hammertoes?admits, denies, denies.?Bunions?denies, denies, denies.?Scoliosis/kyphosis?denies, denies.?Back Pain?denies.?Muscle Cramps/ Resting?denies.?Muscle cramps / walking?admits, denies, denies.?Generalized aches and pains?denies, denies, denies.?Weakness?denies, denies, denies.?Integ.:?Song?denies, denies, denies.?Scars?denies, denies, denies.?Corns/calluses?denies, denies, denies.?Ingrown nails?denies, denies, denies.?Painful nails?denies, denies, denies.?Open Sores?denies.?Rashes?denies, denies, denies.?Neurologic:?Difficulty sleeping?denies, denies, denies.?Bipolar?denies, denies.?Brain disorder?denies, denies, denies.?Numbness?denies.?Balance trouble?denies, denies, denies.?Confusion?denies, denies, denies.?Fainting/blackouts?denies, denies, denies.?Headache?denies, denies.?Tingling?denies.?Tremors?admits, denies, denies.? * Medical History:? * Surgical History:? * Hospitalization/Major Diagno stic Procedure:? * Social History:?Tobacco Use:?Tobacco Use/Smoking?Are you a:?nonsmoker [...] or 2 drinks (0 point) ?Points?1 ?Interpretation?Negative * Medications:?Takingaspirin b jak Atorvastatin Calcium 40 MG Tablet 1 tablet Orally Once a dayBiotin Calcium flonase flovent HFA Fungi-Nail 25 % Solution as directed Externally Twice daily to nailsLoratadine , Notes: AllergyMetoprolol Succinate ER 25 MG Tablet Extended Release 24 Hour TAKE 2 TABS BY MOUTH DAILY FOR 360 DAYS. Oral MiraLax Move Free Joint Health Advance Multivitamin Naproxen Omeprazole Vitamin D Zestril 10 MG Tablet Orally Physical Therapy . . . . 2-3x/weekVoltaren 1 % Gel as directed Externally Walking Boot/Pneumatic As directed Wear DailyTaking aspirin baby Taking Atorvastatin Calcium 40 MG Tablet 1 tablet Orally Once a dayTaking Biotin Taking Calcium Taking flonase Taking flovent HFA Taking Fungi-Nail 25 % Solution as directed Externally Twice daily to nailsTaking Loratadine , Notes: AllergyTaking Metoprolol Succinate ER 25 MG Tablet Extended Release 24 Hour TAKE 2 TABS BY MOUTH DAILY FOR 360 DAYS. Oral Taking MiraLax Taking Move Free Joint Health Advance Taking Multivitamin Taking Naproxen Taking Omeprazole Taking Vitamin D Taking Zestril 10 MG Tablet Orally Taking Physical Therapy . . . . 2-3x/weekTaking Voltaren 1 % Gel as directed Externally Taking Walking Boot/Pneumatic As directed Wear DailyNot-Taking/PRNMetopirone Valium 10 MG Tablet 1 tablet as needed Orally Twice a dayQvar Valium 10 MG Tablet 1 tablet as needed Orally Twice a daypredniSONE 40g Once a dayNot-Taking/PRN Metopirone Not-Taking/PRN Valium 10 MG Tablet 1 tablet as needed Orally Twice a dayNot-Taking/PRN Qvar Not-Taking/PRN Valium 10 MG Tablet 1 tablet as needed Orally Twice a dayNot-Taking/PRN predniSONE 40g Once a day Objective: * Examination: ???General Examination: ?GENERAL APPEARANCE:?pleasant, alert, [...] ?DP PULSES:? 2/4, B/L.?PT PULSES:? 2/4, B/L.?EDEMA:? 1/4, Left, Ankle(s) , no edema.?TELANGECTASIA:? moderate.?VARICOSITIES:? present, [...] and med calc tubercle , LEFT foot--izabella plc and pll.?Nails: ?NAILS are:? Elongated, overgrown, dystrophic, lytic, greater than 3mm thick, discolored and friable with crumbly malodorous subungual debris, TA, T1.? Assessment: * Assessment: 1.?Primary osteoarthritis, l eft ankle and foot - M19.072?2.?Plantar fascial fibromatosis - M72.2 (Primary)?3.?Primary osteoarthritis, right ankle and foot - M19.071?4.?Tinea unguium - B35.1?5.?Plantar fascial fibromatosis - M72.2?6.?Neuralgia and neuritis, unspecified - M79.2? Plan: * Treatment: * Procedures:?Injection:?Tendon Sheath or Fascia?, Injection # Plantar Fascia w/ Celestone Soluspan 3mg + 1cc 1% Xylocaine Pl. anes. utilizing aseptic technique. The patient tolerated the procedure well. A dry sterile dressing was applied. Post injection instructions were dispensed, verbally discussed, and confirmed understood by the patient. I explained that a steroid and local anesthetic injection usually decreases pain and inflammation. I explained the possible complications including but not limited to signs/symptoms of steroid flare, infection, atrophy, bruising, discoloration of skin, additional injections may be necessary, LEFT foot--plm heel.?Med: Joint,Bursa (Sinus Tarsi,AJ)? Injection # Med/Ankle joint bursa/capsule 1cc 1% Xylo.pl + 3mg Celestone Soluspan utilizing aseptic technique. The patient tolerated the procedure well. A dry sterile dressing was applied. Post injection instructions were dispensed, verbally discussed, and confirmed understood by the patient. I explained that a steroid and local anesthetic injection usually decreases pain and inflammation. I explained the possible complications including but not limited to signs/symptoms of steroid flare, change/deviation in toe position, infection, bruising, atrophy, discoloration of skin, additional injections may be necessary, LEFT ankle and sinus tarsi.? * Procedure Codes:?15404 INJ T ENDON SHEATH/LIGAMENT, Modifiers: XS J0702 INJ BETAMETHSN ACTAT&SOD PHOSPH-3MG, Units: 2.00 10771 DRAIN/INJECT, JOINT/BURSA, Modifiers: XS * Follow Up:?prn * Images: * Sign off status: Completed true * Provider:?Wayne Menon DPM Date:? 023 Generated for Ryan durand/Jose/Maileitting on:?10/24/2024 04:25 PM EDT History and Physical Notes * HPI (History of Present Illness) Category Sub-Category Detail Notes Category Not es Heel pain Duration: more than six months Nature: sharp pain, aching Severity/Quality: considered 6 out of 10 Location: Proximal plantar asp ect of Heel, LEFT Onset/Cause: unknown Aggravated: walking first thing in the morning/after rest Course: intermittent Treatments: innersoles/orthotics Skin problems Nature: discolored Location: Left , 1st, 2nd, Toe (s) Duration: several years Onset/Cause: unknown Course: worsened Foot Pain Aggrevated: any pressure, standing, walk [...] and med calc tubercle , LEFT foot--izabella plc and pll Neurological SENSORY: Neurological exa m demonstrates pop [...]
== END 2024-10-24 15:43 | disposition home or self-care (01) ==
LOC: HO.HPS 13:47
PROVIDERS: PCP Internal Medicine; Visit Provider Hospitalist
DX: R91.8 Other nonspecific abnormal finding of lung field (principal); J67.9 Hypersensitivity pneumonitis due to unspecified organic dust; J45.21 Mild intermittent asthma with (acute) exacerbation; J31.0 Chronic rhinitis
CPT/HCPCS: 99214

== ENCOUNTER → 2024-10-24 13:47 | Outpatient (BNVA) | payer OTHER, SELFPAY | PROVIDERS: PCP Internal Medicine; Visit Provider Hospitalist ==